=== PATIENT | female | born 1960 | race Two or more races ===

== ENCOUNTER → 2024-02-24 | Outpatient (CLI) | payer BC, SELFPAY ==
--- NOTE | 2024-02-24 13:15 | XR_ITS ---
Examination: Screening digital mammography, bilateral Computer aided detection 3-D breast Tomosynthesis, bilateral Date and time of exam: February 24, 2024 1328 hours Compared to mammograms dating to July 06, 2012 Indication: Screening Technique: Nonmagnified MLO, CC views of the breasts to been obtained, reconstructed from 3-D Tomosynthesis images. R2 computer aided detection program utilized for evaluation of suspicious masses and/or abnormal calcifications. 3-D Tomosynthesis images obtained. Findings: Scattered areas of fibroglandular density Benign calcifications. No interval suspicious masses Impression: BI-RADS category II: Benign Findings. Recommend 1 year follow-up mammogram.
== END | disposition home or self-care (01) ==
PROVIDERS: PCP Family Medicine; Referring Provider Registered Nurse; Visit Provider Registered Nurse
DX: Z12.31 Encounter for screening mammogram for malignant neoplasm of breast (principal); R92.323 Mammographic fibroglandular density, bilateral breasts; R92.1 Mammographic calcification found on diagnostic imaging of breast
CPT/HCPCS: 77063; 77067

== ENCOUNTER 2024-04-05 09:55 | Day surgery (SDC) | payer MEDICARE, SELFPAY ==
[2024-04-04 13:47] VITALS: BMI 32.3
[2024-04-05] VITALS (9 sets, daily range): BP systolic 132–174; BP diastolic 58–97; PULSE 55–69; RESP 15–20; TEMP 36.3–36.4; O2SAT 93–100; BMI 33.0
[2024-04-05] MEDS: SODIUM CHLORIDE 0.9% 250 ML 250 ML 125 ML IV (12:10)
[2024-04-05] MEDS: DiphenhydrAMINE INJ 50 MG/ML VIAL 25 MG IV (12:15)
[2024-04-05] MEDS: fentaNYL CIT INJ 50 mCg/ML AMP 2ML IV (12:20)
[2024-04-05] MEDS: SIMETHICONE 40 MG/0.6 ML ORAL SYRINGE PO (12:20)
[2024-04-05] MEDS: MIDAZOLAM INJ 1 MG/ML VIAL 2 ML 2 MG IV (12:20)
== END 2024-04-05 14:00 | disposition home or self-care (01) ==
PROVIDERS: PCP Family Medicine; Referring Provider Internal Medicine Gastroenterology; Visit Provider Internal Medicine Gastroenterology
PROC: 0DBE8ZX Excision of Large Intestine, Via Natural or Artificial Opening Endoscopic, Diagnostic (ICD-10-PCS; CPT 45380; principal; 2024-04-05 11:45)
DX: Z12.11 Encounter for screening for malignant neoplasm of colon (principal); K64.8 Other hemorrhoids
CPT/HCPCS: G0121; J1200; J2250; J3010; J7050; A9270